=== PATIENT | male | born 1985 | race African-American/Black ===

== ENCOUNTER 2018-10-29 19:33 | Inpatient (IN) | payer SELFPAY ==
[~2018-10-29] VITALS: Ht 175.3 cm; Wt 88.2 kg
[2018-10-29 20:31] LABS: BASO % 0 % (0-3); EOS % 0 % (0-3); HEMATOCRIT 45.3 % (39.0-53.0); HEMOGLOBIN 15.2 g/dL (13.0-17.5); LYMPH # 1.2 x10^3/uL (1.0-4.8); LYMPH % 15 % (24-48); MEAN CORPUSCULAR HEMOGLOBIN 33 pg (25-35); MEAN CORPUSCULAR HGB CONC 34 g/dL (31-37); MEAN CORPUSCULAR VOLUME 98 fL (79-100); MONO % 13 % (0-9); NEUT # 5.5 x10^3uL (1.8-7.7); NEUT % 71 % (31-73); PLATELET COUNT 178 x10^3/uL (140-400); RED BLOOD COUNT 4.64 x10^6/uL (4.30-5.70); RED CELL DISTRIBUTION WIDTH 15.3 % (11.5-14.5); WHITE BLOOD COUNT 7.8 x10^3/uL (4.0-11.0)
[2018-10-29 20:32] LABS: BILIRUBIN,URINE MODERATE (NEG); CLARITY,URINE TURBID; COLOR,URINE YELLOW; NITRITE,URINE NEGATIVE (NEG); PROTEIN,URINE NEGATIVE (NEG-TRACE)
[2018-10-29 20:39] LABS: BARBITURATES NEG (NEG); BENZODIAZEPINES POS (NEG); CANNABINOIDS NEG (NEG); COCAINE NEG (NEG); METHADONE NEG (NEG); OPIATES NEG (NEG); PHENCYCLIDINE NEG (NEG)
[2018-10-29 20:40] LABS: AMPHETAMINE/METHAMPHETAMINE NEG (NEG)
[2018-10-29 20:45] LABS: BACTERIA,URINE FEW /HPF (0-FEW); RBC,URINE 0 /HPF (0-2)
[2018-10-29] MEDS ORDERED: ASPIRIN 325 MG TABLET PO ONE (20:45)
[2018-10-29] MEDS ORDERED: MULTIVIT INFUSN,ADULT 4,VIT K 10 ML, THIAMINE INJ 100 MG, FOLIC ACID INJ 1 MG in IV NOR... IV ONE (20:45)
[2018-10-29 20:46] LABS: CALCIUM 9.5 mg/dL (8.5-10.1); CREATININE 1.2 mg/dL (0.7-1.3); GFR 68.9; POTASSIUM 3.3 mmol/L (3.5-5.1)
[2018-10-29 20:46] LABS: SQUAMOUS EPITHELIAL CELL,UR FEW /LPF
[2018-10-29 20:52] LABS: ALBUMIN 4.2 g/dL (3.4-5.0); ALBUMIN/GLOBULIN RATIO 1.1 (1.0-1.7); MAGNESIUM 1.9 mg/dL (1.8-2.4); TOTAL BILIRUBIN 0.7 mg/dL (0.2-1.0)
--- NOTE | 2018-10-29 22:13 | RAD ---
EXAM: CHEST 1 VIEW History: Chest pain COMPARISON: None available. TECHNIQUE: Single portable radiograph of the chest FINDINGS: The cardiac silhouette is unremarkable. The lungs are clear bilaterally. The costophrenic sulci are clear and well demarcated. IMPRESSION: No radiographic evidence of an acute cardiopulmonary process. Electronically signed by: Natanael Padilla MD (10/29/2018 10:10 PM) [facility]
[2018-10-29] MEDS ORDERED: IV NORMAL SALINE 1000ML BAG 1,000 ML IV ONE (23:30)
[2018-10-29] MEDS ORDERED: LABETALOL 20 MG/4 ML DISP.SYRIN. IVP ONE (23:30)
--- NOTE | 2018-10-29 23:54 | PHYS DOC ---
Past Medical History Past Medical History: Other Additional Past Medical Histor: DAILY ETOH AND OCCASIONAL DRUG USE Past Surgical History: Knee Replacement Additional Past Surgical Histo: R SHOULDER Alcohol Use: Heavy Additional Information: DRINKS REPORTED 6 X 20 OZ BEERS AND 1 PINT VODKA DAILY. Drug Use: Other Social History Narrative: ECSTASY Adult General Chief Complaint Chief Complaint: CHEST PAIN HPI HPI Patient is a 33 year old male with history of vocal abuse who presents to the ED to be evaluated for chest pain. Patient is very decisive or rather altered. He appears sleepy. He is not giving me much information. I am collecting most of the information from this step mother and the father who in the ED. They state patient is alcoholic. Drinks heavily. Patient himself states the last time he had alcohol was 2 days ago. He states he usually drinks 2 large pitchers of beer as well as one large size hard liquor daily except yesterday. Family states this patient just moved from [place]. They state in [place] he was seen at multiple facilities for alcohol intoxication several times. They states somehow he used to walk a lot in [place]. They state this patient has not had any sleep for 2 days. Review of Systems Review of Systems Constitutional: Denies fever or chills [] Eyes: Denies change in visual acuity, redness, or eye pain [] HENT: Denies nasal congestion or sore throat [] Respiratory: Denies cough or shortness of breath [] Cardiovascular: No additional information not addressed in HPI [] GI: Denies abdominal pain, nausea, vomiting, bloody stools or diarrhea [] : Denies dysuria or hematuria [] Musculoskeletal: Denies back pain or joint pain [] Integument: Denies rash or skin lesions [] Neurologic: Denies headache, focal weakness or sensory changes [] Endocrine: Denies polyuria or polydipsia [] All other systems were reviewed and found to be within normal limits, except as documented in this note. Current Medications Current Medications Current Medications Medications (Trade) Dose Ordered Sig/Verna Start Time Stop Time Status Last Admin Dose Admin Aspirin (Lui Aspirin) 325 mg 1X ONCE 10/29/18 20:45 10/29/18 20:46 DC 10/29/18 20:30 325 MG Multivitamins 10 ml/Thiamine HCl 100 mg/Folic Acid 1 mg/Sodium Chloride 1,011.2 ml @ 1,000.088 mls/hr 1X ONCE 10/29/18 20:45 10/29/18 21:45 DC 10/29/18 20:35 1,000.088 MLS/HR Allergies Allergies Allergies Coded Allergies Type Severity Reaction Last Updated Verified No Known Drug Allergies 10/29/18 No Physical Exam Physical Exam Constitutional: Well developed, well nourished, no acute distress, non-toxic appearance. [] HENT: Normocephalic, atraumatic, bilateral external ears normal, oropharynx moist, no oral exudates, nose normal. [] Eyes: PERRLA, EOMI, conjunctiva normal, no discharge. [] Neck: Normal range of motion, no tenderness, supple, no stridor. [] Cardiovascular:Heart rate regular rhythm, no murmur [] Lungs & Thorax: Bilateral breath sounds clear to auscultation [] Abdomen: Bowel sounds normal, soft, no tenderness, no masses, no pulsatile masses. [] Skin: Multiple bruises consistent with cuts on bilateral lower extremities Back: No tenderness, no CVA tenderness. [] Extremities: No tenderness, no cyanosis, no clubbing, ROM intact, no edema. [] Neurologic: Alert and oriented X 3, normal motor function, normal sensory function, no focal deficits noted. Cranial nerves II through XII intact Psychologic: Flat affect. Asleep most of the time. Current Patient Data Vital Signs Vital Signs Date Time Temp Pulse Resp B/P (MAP) Pulse Ox O2 Delivery O2 Flow Rate FiO2 10/29/18 22:55 76 20 138/86 (103) 99 Room Air 10/29/18 19:36 98.0 98.0 Lab Values Laboratory Tests Test 10/29/18 19:45 10/29/18 20:20 White Blood Count 7.8 x10^3/uL (4.0-11.0) Red Blood Count 4.64 x10^6/uL (4.30-5.70) Hemoglobin 15.2 g/dL (13.0-17.5) Hematocrit 45.3 % (39.0-53.0) Mean Corpuscular Volume 98 fL (79-100) Mean Corpuscular Hemoglobin 33 pg (25-35) Mean Corpuscular Hemoglobin Concent 34 g/dL (31-37) Red Cell Distribution Width 15.3 % (11.5-14.5) H Platelet Count 178 x10^3/uL (140-400) Neutrophils (%) (Auto) 71 % (31-73) Lymphocytes (%) (Auto) 15 % (24-48) L Monocytes (%) (Auto) 13 % (0-9) H Eosinophils (%) (Auto) 0 % (0-3) Basophils (%) (Auto) 0 % (0-3) Neutrophils # (Auto) 5.5 x10^3uL (1.8-7.7) Lymphocytes # (Auto) 1.2 x10^3/uL (1.0-4.8) Monocytes # (Auto) 1.0 x10^3/uL (0.0-1.1) Eosinophils # (Auto) 0.0 x10^3/uL (0.0-0.7) Basophils # (Auto) 0.0 x10^3/uL (0.0-0.2) Sodium Level 140 mmol/L (136-145) Potassium Level 3.3 mmol/L (3.5-5.1) L Chloride Level 100 mmol/L (98-107) Carbon Dioxide Level 23 mmol/L (21-32) Anion Gap 17 (6-14) H Blood Urea Nitrogen 10 mg/dL (8-26) Creatinine 1.2 mg/dL (0.7-1.3) Estimated GFR (Cockcroft-Gault) 68.9 BUN/Creatinine Ratio 8 (6-20) Glucose Level 101 mg/dL (70-99) H Calcium Level 9.5 mg/dL (8.5-10.1) Magnesium Level 1.9 mg/dL (1.8-2.4) Total Bilirubin 0.7 mg/dL (0.2-1.0) Aspartate Amino Transferase (AST) 103 U/L (15-37) H Alanine Aminotransferase (ALT) 52 U/L (16-63) Alkaline Phosphatase 75 U/L (46-116) Troponin I Quantitative 0.022 ng/mL (0.000-0.055) NA-Zyh-D-Type Natriuretic Peptide 44 pg/mL (0-124) Total Protein 8.0 g/dL (6.4-8.2) Albumin 4.2 g/dL (3.4-5.0) Albumin/Globulin Ratio 1.1 (1.0-1.7) Lipase 64 U/L (73-393) L Thyroid Stimulating Hormone (TSH) 0.646 uIU/mL (0.358-3.74) Ethyl Alcohol Level < 10 mg/dL (0-10) Urine Collection Type Void Urine Color Yellow Urine Clarity Turbid Urine pH 6.0 Urine Specific [place] >=1.030 Urine Protein Negative mg/dL (NEG-TRACE) Urine Glucose (UA) Negative mg/dL (NEG) Urine Ketones (Stick) 15 mg/dL (NEG) Urine Blood Trace (NEG) Urine Nitrite Negative (NEG) Urine Bilirubin Moderate (NEG) Urine Urobilinogen Dipstick 1.0 mg/dL (0.2 mg/dL) Urine Leukocyte Esterase Negative (NEG) Urine RBC 0 /HPF (0-2) Urine WBC 1-4 /HPF (0-4) Urine Squamous Epithelial Cells Few /LPF Urine Bacteria Few /HPF (0-FEW) Urine Mucus Mod /LPF Urine Opiates Screen Neg (NEG) Urine Methadone Screen Neg (NEG) Urine Barbiturates Neg (NEG) Urine Phencyclidine Screen Neg (NEG) Urine Amphetamine/Methamphetamine Neg (NEG) Urine Benzodiazepines Screen Pos (NEG) Urine Cocaine Screen Neg (NEG) Urine Cannabinoids Screen Neg (NEG) Urine Ethyl Alcohol Neg (NEG) Laboratory Tests 10/29/18 19:45 Laboratory Tests 10/29/18 19:45 EKG EKG [] Radiology/Procedures Radiology/Procedures [] Course & Med Decision Making Course & Med Decision Making Pertinent Labs and Imaging studies reviewed. (See chart for details) This is a 33-year-old male patient presenting to the ED today with family, family is giving most of the history. They state patient is an alcoholic. They state patient was complaining of chest pain. Patient himself appears sleepy most of the time sometimes he is choosing to be altered or refusing to answer questions it is hard to tell. Family states he just moved here from [place] and they do not have a baseline other than he is alcoholic. Patient's labs including cardiac workup was negative for any acute findings. We ordered a CT of the head. Patient woke up several times, anytime he was told he is going to CT he refused stating he does not want the CT. He states he just had a CT done in [place] a couple days ago that was negative. He states he has had multiple CTs done in [place] which are negative. Patient has been given a banana bag, given IV fluids. He is more awake as the evening went by. His drug screen was noted for benzodiazepines only. He states he uses ecstasy but has not used it for [address] Espinoza who accepted patient for admission Routine consult placed for cardiology Melissa Disclaimer Dragon Disclaimer This electronic medical record was generated, in whole or in part, using a voice recognition dictation system. 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
[2018-10-30] VITALS (7 sets, daily range): BP systolic 100–155; BP diastolic 67–91
[2018-10-30] MEDS ORDERED: MORPHINE SULFATE 2 MG/ML VIAL. IV PRN
[2018-10-30] MEDS ORDERED: ONDANSETRON PF 4 MG/2 ML VIAL. IV PRN
[2018-10-30] MEDS ORDERED: cloNIDine HCL 0.1 MG TABLET PO PRN
[2018-10-30] MEDS ORDERED: ACETAMINOPHEN 325 MG TABLET. PO PRN
--- NOTE | 2018-10-30 00:10 | NUR ---
ADMISSION NOTE: Patient arrived to room 556 via wheelchair accompanied by ED staff. Patient able to ambulate to bed without visible difficulty. Bed low, locked, call light within reach. Patient complains of hunger at this time. Will check EMR for orders regarding diet. Patient has no other complaints at this time. Will continue to monitor.
[2018-10-30] MEDS ORDERED: POTASSIUM CHLORIDE 20 MEQ TABLET.ER. PO ONE (00:30)
[2018-10-30] MEDS: LORazepam 1 MG TABLET PO PRN ×2 (02:55→04:42)
[2018-10-30 03:41] LABS: ALBUMIN 3.9 g/dL (3.4-5.0); ALBUMIN/GLOBULIN RATIO 1.2 (1.0-1.7); CALCIUM 8.8 mg/dL (8.5-10.1); GFR 102.9; POTASSIUM 3.6 mmol/L (3.5-5.1); TOTAL BILIRUBIN 0.8 mg/dL (0.2-1.0); TOTAL PROTEIN 7.1 g/dL (6.4-8.2)
[2018-10-30 03:53] LABS: BASO % 1 % (0-3); EOS % 0 % (0-3); HEMATOCRIT 44.1 % (39.0-53.0); HEMOGLOBIN 14.6 g/dL (13.0-17.5); LYMPH # 1.5 x10^3/uL (1.0-4.8); LYMPH % 21 % (24-48); MEAN CORPUSCULAR HEMOGLOBIN 32 pg (25-35); MEAN CORPUSCULAR HGB CONC 33 g/dL (31-37); MEAN CORPUSCULAR VOLUME 98 fL (79-100); MONO # 0.9 x10^3/uL (0.0-1.1); MONO % 12 % (0-9); NEUT # 4.8 x10^3uL (1.8-7.7); NEUT % 66 % (31-73); PLATELET COUNT 180 x10^3/uL (140-400); RED BLOOD COUNT 4.52 x10^6/uL (4.30-5.70); RED CELL DISTRIBUTION WIDTH 15.4 % (11.5-14.5); WHITE BLOOD COUNT 7.3 x10^3/uL (4.0-11.0)
--- NOTE | 2018-10-30 04:30 | NUR ---
Entered patient room d/t patient calling dish up person light but not saying anything when answered. Patient was observed with hand over his eyes and other hand pointing to empty recliner, shaking. Asked patient what was wrong, patient did not respond. Patient was then observed to place an index finger over his mouth in a shushing motion and then continued to point at empty recliner. Asked patient if someone was in his room, patient nodded head. Reassured patient that I was the only person in his room at the time. Patient continued to keep hand over his eyes. Asked patient if his hallucinations were getting worse, patient shook head "yes." Asked patient if he would like me to go get his Ativan for the hallucinations, patient again nodded head "yes." Will continue to monitor after administered dose.
[2018-10-30] MEDS ORDERED: DIPH25TA64 PO (04:50)
--- NOTE | 2018-10-30 06:49 | EKG ---
[facility] [address] [place] [address] Test Date: 2018-10-29 Test Time: 19:39:58 Pat Name: SUHAIL NICHOLSON Department: Room: 556 1 Gender: M Senior Investigator: : 1985 Requested By: MARCIAL FINN Order Number: [id number] Reading MD: Joel Ordoñez MD Measurements Intervals Novice Rate: 94 P: 90 LA: 132 QRS: 24 QRSD: 90 T: 20 QT: 352 QTc: 445 Interpretive Statements SR NON-SPECIFIC ST/T CHANGES Electronically Signed On 10-30-2018 16:24:01 CDT by Joel Ordoñez MD
--- NOTE | 2018-10-30 08:11 | NUR ---
Pt was sleeping when 0721 CIWA was due. Can not verify orientation.
--- NOTE | 2018-10-30 09:29 | PDOC2 ---
FADI MCPHERSON ADMINISTRATIVE COORDINATOR 10/30/18 0929: CARDIAC CONSULT DATE OF CONSULT Date of Consult DATE: 10/30/18 TIME: 09:13 REASON FOR CONSULT Reason for Consult: Chest pain REFERRING PHYSICIAN Referring Physician: Dennis SOURCE Source: Chart review, Patient HISTORY OF PRESENT ILLNESS HISTORY OF PRESENT ILLNESS This is a 33 yo male admitted for complains chest pain. Upon admission he has been noted with ETOH use and +for benzodiazepine. I could not get much information from him as he is very drowsy as he was given large dose of ativan per protocol. He is able to follow instructions despite being very drowsy. Pt has been noted as a heavy ETOH user with combination of beer and vodka. At the present time I palpated his chest gently and this appeared to trigger the chest discomfort. PAST MEDICAL HISTORY Past Medical History alcoholism PAST SURGICAL HISTORY Past Surgical History: Arthroscopy (right shoulder and knee surgery) FAMILY HISTORY Family History: Family History Unknown SOCIAL HISTORY ALCOHOL: heavy (at least 6 bottles of beer and 1 pint of vodka) Drugs: Ecstasy CURRENT MEDICATIONS CURRENT MEDICATIONS Current Medications Medications (Trade) Dose Ordered Sig/Verna Route PRN Reason Start Time Stop Time Status Last Admin Dose Admin Aspirin (Lui Aspirin) 325 mg 1X ONCE PO 10/29/18 20:45 10/29/18 20:46 DC 10/29/18 20:30 Multivitamins 10 ml/Thiamine HCl 100 mg/Folic Acid 1 mg/Sodium Chloride 1,011.2 ml @ 1,000.088 mls/hr 1X ONCE IV 10/29/18 20:45 10/29/18 21:45 DC 10/29/18 20:35 Sodium Chloride 1,000 ml @ 1,000 mls/hr 1X ONCE IV 10/29/18 23:30 10/30/18 00:29 DC 10/30/18 00:44 Lorazepam (Ativan) 4 mg PRN Q1HR PRN PO For CIWA 8-14 10/30/18 00:00 10/30/18 04:42 Potassium Chloride (Klor-Con) 40 meq 1X ONCE PO 10/30/18 00:30 10/30/18 00:31 DC 10/30/18 00:44 ALLERGIES ALLERGIES: Coded Allergies: No Known Drug Allergies (Unverified , 10/29/18) ROS Review of System unreliable, sedated PHYSICAL EXAM General: Cooperative, No acute distress HEENT: Atraumatic, Mucous membr. moist/pink Lungs: Clear to auscultation, Normal air movement Heart: Regular rate (SR per EKG. Regular 60s), Normal S1, Normal S2, No murmurs Abdomen: Soft, No tenderness Extremities: No cyanosis, No edema Skin: No breakdown, No significant lesion Neuro: Sensation intact Psych/Mental Status: Other (sedated) MUSCULOSKELETAL: Full range of motion without pain VITALS VITALS Vital Signs Date Time Temp Pulse Resp B/P (MAP) Pulse Ox O2 Delivery O2 Flow Rate FiO2 10/30/18 07:00 97.9 60 20 100/67 (78) 95 Room Air 97.9 LABS Lab: Laboratory Tests Test 10/29/18 19:45 10/29/18 20:20 10/30/18 03:00 White Blood Count 7.8 x10^3/uL (4.0-11.0) 7.3 x10^3/uL (4.0-11.0) Red Blood Count 4.64 x10^6/uL (4.30-5.70) 4.52 x10^6/uL (4.30-5.70) Hemoglobin 15.2 g/dL (13.0-17.5) 14.6 g/dL (13.0-17.5) Hematocrit 45.3 % (39.0-53.0) 44.1 % (39.0-53.0) Mean Corpuscular Volume 98 fL (79-100) 98 fL (79-100) Mean Corpuscular Hemoglobin 33 pg (25-35) 32 pg (25-35) Mean Corpuscular Hemoglobin Concent 34 g/dL (31-37) 33 g/dL (31-37) Red Cell Distribution Width 15.3 % (11.5-14.5) 15.4 % (11.5-14.5) Platelet Count 178 x10^3/uL (140-400) 180 x10^3/uL (140-400) Neutrophils (%) (Auto) 71 % (31-73) 66 % (31-73) Lymphocytes (%) (Auto) 15 % (24-48) 21 % (24-48) Monocytes (%) (Auto) 13 % (0-9) 12 % (0-9) Eosinophils (%) (Auto) 0 % (0-3) 0 % (0-3) Basophils (%) (Auto) 0 % (0-3) 1 % (0-3) Neutrophils # (Auto) 5.5 x10^3uL (1.8-7.7) 4.8 x10^3uL (1.8-7.7) Lymphocytes # (Auto) 1.2 x10^3/uL (1.0-4.8) 1.5 x10^3/uL (1.0-4.8) Monocytes # (Auto) 1.0 x10^3/uL (0.0-1.1) 0.9 x10^3/uL (0.0-1.1) Eosinophils # (Auto) 0.0 x10^3/uL (0.0-0.7) 0.0 x10^3/uL (0.0-0.7) Basophils # (Auto) 0.0 x10^3/uL (0.0-0.2) 0.0 x10^3/uL (0.0-0.2) Sodium Level 140 mmol/L (136-145) 141 mmol/L (136-145) Potassium Level 3.3 mmol/L (3.5-5.1) 3.6 mmol/L (3.5-5.1) Chloride Level 100 mmol/L (98-107) 103 mmol/L (98-107) Carbon Dioxide Level 23 mmol/L (21-32) 22 mmol/L (21-32) Anion Gap 17 (6-14) 16 (6-14) Blood Urea Nitrogen 10 mg/dL (8-26) 8 mg/dL (8-26) Creatinine 1.2 mg/dL (0.7-1.3) 1.0 mg/dL (0.7-1.3) Estimated GFR (Cockcroft-Gault) 68.9 102.9 BUN/Creatinine Ratio 8 (6-20) 8 (6-20) Glucose Level 101 mg/dL (70-99) 128 mg/dL (70-99) Calcium Level 9.5 mg/dL (8.5-10.1) 8.8 mg/dL (8.5-10.1) Magnesium Level 1.9 mg/dL (1.8-2.4) Total Bilirubin 0.7 mg/dL (0.2-1.0) 0.8 mg/dL (0.2-1.0) Aspartate Amino Transf (AST/SGOT) 103 U/L (15-37) 86 U/L (15-37) Alanine Aminotransferase (ALT/SGPT) 52 U/L (16-63) 47 U/L (16-63) Alkaline Phosphatase 75 U/L (46-116) 72 U/L (46-116) Troponin I Quantitative 0.022 ng/mL (0.000-0.055) 0.030 ng/mL (0.000-0.055) FB-Uhi-W-Type Natriuretic Peptide 44 pg/mL (0-124) Total Protein 8.0 g/dL (6.4-8.2) 7.1 g/dL (6.4-8.2) Albumin 4.2 g/dL (3.4-5.0) 3.9 g/dL (3.4-5.0) Albumin/Globulin Ratio 1.1 (1.0-1.7) 1.2 (1.0-1.7) Lipase 64 U/L (73-393) Thyroid Stimulating Hormone (TSH) 0.646 uIU/mL (0.358-3.74) Ethyl Alcohol Level < 10 mg/dL (0-10) Urine Collection Type Void Urine Color Yellow Urine Clarity Turbid Urine pH 6.0 Urine Specific [place] >=1.030 Urine Protein Negative mg/dL (NEG-TRACE) Urine Glucose (UA) Negative mg/dL (NEG) Urine Ketones (Stick) 15 mg/dL (NEG) Urine Blood Trace (NEG) Urine Nitrite Negative (NEG) Urine Bilirubin Moderate (NEG) Urine Urobilinogen Dipstick 1.0 mg/dL (0.2 mg/dL) Urine Leukocyte Esterase Negative (NEG) Urine RBC 0 /HPF (0-2) Urine WBC 1-4 /HPF (0-4) Urine Squamous Epithelial Cells Few /LPF Urine Bacteria Few /HPF (0-FEW) Urine Mucus Mod /LPF Urine Opiates Screen Neg (NEG) Urine Methadone Screen Neg (NEG) Urine Barbiturates Neg (NEG) Urine Phencyclidine Screen Neg (NEG) Urine Amphetamine/Methamphetamine Neg (NEG) Urine Benzodiazepines Screen Pos (NEG) Urine Cocaine Screen Neg (NEG) Urine Cannabinoids Screen Neg (NEG) Urine Ethyl Alcohol Neg (NEG) Ammonia 17 mcmol/L (11-34) ASSESSMENT/PLAN ASSESSMENT/PLAN Atypical CP: possibly MSK. EKG SR without acute changes Heavy alcoholism: presently sedated with ativan. Recommendations 1. CIWA protocol per PCP 2. Repeat trop. lipids. No further cardiac workup. ERICKA BEGUM MD 10/30/18 1624: CARDIAC CONSULT ASSESSMENT/PLAN ASSESSMENT/PLAN Pt. seen and examined. Agree with above DIABETES CLINICAL MANAGER note. EKG, cardiac exam, history not consistent with cardiac issues. Supportive care. pls call with questions. FADI MCPHERSON APRN Oct 30, 2018 09:29 ERICKA BEGUM MD Oct 30, 2018 16:24
[2018-10-30] MEDS: MULTIVIT INFUSN,ADULT 4,VIT K 10 ML, THIAMINE INJ 100 MG, FOLIC ACID INJ 1 MG in IV NOR... IV SCH (09:41)
[2018-10-30] MEDS ORDERED: PANTOPRAZOLE 40 MG TABLET.DR. PO ONE (09:45)
[2018-10-30 09:47] LABS: CHOLESTEROL/HDL RATIO 2.4
--- NOTE | 2018-10-30 10:23 | NUR ---
SW following. Discussed with RN, pt is on day 3 of alcohol withdrawals, with some hallucinations yesterday. Per RN, pt is from [place], here visiting his parents. SW consulted PAT team, they will assess pt this afternoon. RN notified. Pt is listed as self pay, SW to give self pay resources when pt is more alert. SW will continue to follow for any discharge planning needs.
--- NOTE | 2018-10-30 10:44 | PDOC1 ---
History and Physical Date of Admission Date of Admission DATE: 10/30/18 TIME: 10:40 Identification/Chief Complaint Chief Complaint intox Source Source: Chart review History of Present Illness History of Present Illness MR. Kiran is a 33 year old male admit with confusion and agitation and delirium He has a history of substance abuse of alcohol, in the ER last night complained of chest pain. altered in the ER, very lethagic this AM ER report more reliable about EtOH intake, he is not that clear with me, only giving one word answr and confued, and not oriented very sleepy. Family states this patient just moved from [place], had prior admits for acute alcohol intoxication several times. T Past Medical History Cardiovascular: No pertinent hx Pulmonary: No pertinent hx Past Surgical History Past Surgical History: Arthroscopy (right shoulder and knee surgery) Family History Family History: Family History Unknown Social History ALCOHOL: heavy (at least 6 bottles of beer and 1 pint of vodka) Drugs: Ecstasy Current Problem List Problem List Problems Medical Problems: (1) Chest pain Status: Acute Current Medications Current Medications Current Medications Aspirin (Lui Aspirin) 325 mg 1X ONCE PO Last administered on 10/29/18at 20:30 ; Start 10/29/18 at 20:45; Stop 10/29/18 at 20:46; Status DC Multivitamins 10 ml/Thiamine HCl 100 mg/Folic Acid 1 mg/Sodium Chloride 1,011.2 ml @ 1,000.088 mls/hr 1X ONCE IV Last administered on 10/29/18at 20:35; Start 10/29/18 at 20:45; Stop 10/29/18 at 21:45; Status DC Labetalol HCl (Normodyne Iv Push) 10 mg 1X ONCE IVP ; Start 10/29/18 at 23:30; Stop 10/29/18 at 23:31; Status DC Sodium Chloride 1,000 ml @ 1,000 mls/hr 1X ONCE IV Last administered on at 00:44; Start 10/29/18 at 23:30; Stop 10/30/18 at 00:29; Status DC Ondansetron HCl (Zofran) 4 mg PRN Q8HRS PRN IV NAUSEA/VOMITING 1ST CHOICE; Start 10/30/18 at 00:00; Stop 10/30/18 at 23:59 Morphine Sulfate (Morphine Sulfate) 2 mg PRN Q2HR PRN IV SEVERE PAIN; Start at 00:00; Stop 10/30/18 at 23:59 Acetaminophen (Tylenol) 650 mg PRN Q4HRS PRN PO FEVER; Start 10/30/18 at 00:00 ; Stop 10/30/18 at 23:59 Multivitamins 10 ml/Thiamine HCl 100 mg/Folic Acid 1 mg/Sodium Chloride 1,011.2 ml @ 100 mls/ hr DAILY IV Last administered on 10/30/18at 09:41; Start at 09:00; Stop 11/03/18 at 19:07 Lorazepam (Ativan) 4 mg PRN Q1HR PRN PO For CIWA 8-14 Last administered on 10/30at 04:42; Start 10/30/18 at 00:00 Clonidine HCl (Catapres) 0.1 mg PRN Q1HR PRN PO SBP > 180 or DBP > 100, MRX3; Start 10/30/18 at 00:00 Potassium Chloride (Klor-Con) 40 meq 1X ONCE PO Last administered on at 00:44; Start 10/30/18 at 00:30; Stop 10/30/18 at 00:31; Status DC Pantoprazole Sodium (Protonix) 40 mg DAILYAC PO ; Start 10/31/18 at 07:30 Pantoprazole Sodium (Protonix) 40 mg 1X ONCE PO ; Start 10/30/18 at 09:45; Stop 10/30/18 at 09:46; Status DC Active Scripts Active Reported Benadryl Allergy (Diphenhydramine Hcl) 25 Mg Tablet 25 Mg PO PRN QHS PRN Allergies Allergies: Coded Allergies: No Known Drug Allergies (Unverified , 10/29/18) ROS Review of System unable, confused, lethargic Physical Exam General: mild distress, Other (somnolent) HEENT: Atraumatic, EOMI Lungs: Clear to auscultation, Normal air movement Heart: RRR, no murmurs Abdomen: Normal bowel sounds, Soft Rectal Exam: not examined Extremities: No cyanosis, No edema, Normal pulses Skin: No rashes, No significant lesion Neuro: Normal tone Psych/Mental Status: Other (somnolent) Vitals Vitals Vital Signs Date Time Temp Pulse Resp B/P (MAP) Pulse Ox O2 Delivery O2 Flow Rate FiO2 10/30/18 07:00 97.9 60 20 100/67 (78) 95 Room Air 97.9 Labs Labs Laboratory Tests Test 10/29/18 19:45 10/29/18 20:20 10/30/18 03:00 10/30/18 09:45 White Blood Count 7.8 x10^3/uL (4.0-11.0) 7.3 x10^3/uL (4.0-11.0) Red Blood Count 4.64 x10^6/uL (4.30-5.70) 4.52 x10^6/uL (4.30-5.70) Hemoglobin 15.2 g/dL (13.0-17.5) 14.6 g/dL (13.0-17.5) Hematocrit 45.3 % (39.0-53.0) 44.1 % (39.0-53.0) Mean Corpuscular Volume 98 fL (79-100) 98 fL (79-100) Mean Corpuscular Hemoglobin 33 pg (25-35) 32 pg (25-35) Mean Corpuscular Hemoglobin Concent 34 g/dL (31-37) 33 g/dL (31-37) Red Cell Distribution Width 15.3 % (11.5-14.5) 15.4 % (11.5-14.5) Platelet Count 178 x10^3/uL (140-400) 180 x10^3/uL (140-400) Neutrophils (%) (Auto) 71 % (31-73) 66 % (31-73) Lymphocytes (%) (Auto) 15 % (24-48) 21 % (24-48) Monocytes (%) (Auto) 13 % (0-9) 12 % (0-9) Eosinophils (%) (Auto) 0 % (0-3) 0 % (0-3) Basophils (%) (Auto) 0 % (0-3) 1 % (0-3) Neutrophils # (Auto) 5.5 x10^3uL (1.8-7.7) 4.8 x10^3uL (1.8-7.7) Lymphocytes # (Auto) 1.2 x10^3/uL (1.0-4.8) 1.5 x10^3/uL (1.0-4.8) Monocytes # (Auto) 1.0 x10^3/uL (0.0-1.1) 0.9 x10^3/uL (0.0-1.1) Eosinophils # (Auto) 0.0 x10^3/uL (0.0-0.7) 0.0 x10^3/uL (0.0-0.7) Basophils # (Auto) 0.0 x10^3/uL (0.0-0.2) 0.0 x10^3/uL (0.0-0.2) Sodium Level 140 mmol/L (136-145) 141 mmol/L (136-145) Potassium Level 3.3 mmol/L (3.5-5.1) 3.6 mmol/L (3.5-5.1) Chloride Level 100 mmol/L (98-107) 103 mmol/L (98-107) Carbon Dioxide Level 23 mmol/L (21-32) 22 mmol/L (21-32) Anion Gap 17 (6-14) 16 (6-14) Blood Urea Nitrogen 10 mg/dL (8-26) 8 mg/dL (8-26) Creatinine 1.2 mg/dL (0.7-1.3) 1.0 mg/dL (0.7-1.3) Estimated GFR (Cockcroft-Gault) 68.9 102.9 BUN/Creatinine Ratio 8 (6-20) 8 (6-20) Glucose Level 101 mg/dL (70-99) 128 mg/dL (70-99) Calcium Level 9.5 mg/dL (8.5-10.1) 8.8 mg/dL (8.5-10.1) Magnesium Level 1.9 mg/dL (1.8-2.4) Total Bilirubin 0.7 mg/dL (0.2-1.0) 0.8 mg/dL (0.2-1.0) Aspartate Amino Transf (AST/SGOT) 103 U/L (15-37) 86 U/L (15-37) Alanine Aminotransferase (ALT/SGPT) 52 U/L (16-63) 47 U/L (16-63) Alkaline Phosphatase 75 U/L (46-116) 72 U/L (46-116) Troponin I Quantitative 0.022 ng/mL (0.000-0.055) 0.030 ng/mL (0.000-0.055) 0.031 ng/mL (0.000-0.055) QG-Noj-M-Type Natriuretic Peptide 44 pg/mL (0-124) Total Protein 8.0 g/dL (6.4-8.2) 7.1 g/dL (6.4-8.2) Albumin 4.2 g/dL (3.4-5.0) 3.9 g/dL (3.4-5.0) Albumin/Globulin Ratio 1.1 (1.0-1.7) 1.2 (1.0-1.7) Lipase 64 U/L (73-393) Thyroid Stimulating Hormone (TSH) 0.646 uIU/mL (0.358-3.74) Ethyl Alcohol Level < 10 mg/dL (0-10) Urine Collection Type Void Urine Color Yellow Urine Clarity Turbid Urine pH 6.0 Urine Specific [place] >=1.030 Urine Protein Negative mg/dL (NEG-TRACE) Urine Glucose (UA) Negative mg/dL (NEG) Urine Ketones (Stick) 15 mg/dL (NEG) Urine Blood Trace (NEG) Urine Nitrite Negative (NEG) Urine Bilirubin Moderate (NEG) Urine Urobilinogen Dipstick 1.0 mg/dL (0.2 mg/dL) Urine Leukocyte Esterase Negative (NEG) Urine RBC 0 /HPF (0-2) Urine WBC 1-4 /HPF (0-4) Urine Squamous Epithelial Cells Few /LPF Urine Bacteria Few /HPF (0-FEW) Urine Mucus Mod /LPF Urine Opiates Screen Neg (NEG) Urine Methadone Screen Neg (NEG) Urine Barbiturates Neg (NEG) Urine Phencyclidine Screen Neg (NEG) Urine Amphetamine/Methamphetamine Neg (NEG) Urine Benzodiazepines Screen Pos (NEG) Urine Cocaine Screen Neg (NEG) Urine Cannabinoids Screen Neg (NEG) Urine Ethyl Alcohol Neg (NEG) Ammonia 17 mcmol/L (11-34) Triglycerides Level 57 mg/dL (0-150) Cholesterol Level 154 mg/dL (0-200) LDL Cholesterol, Calculated 79 mg/dL (0-100) VLDL Cholesterol, Calculated 11 mg/dL (0-40) Non-HDL Cholesterol Calculated 90 mg/dL (0-129) HDL Cholesterol 64 mg/dL (40-60) Cholesterol/HDL Ratio 2.4 Laboratory Tests Test 10/29/18 19:45 10/29/18 20:20 10/30/18 03:00 10/30/18 09:45 White Blood Count 7.8 x10^3/uL (4.0-11.0) 7.3 x10^3/uL (4.0-11.0) Red Blood Count 4.64 x10^6/uL (4.30-5.70) 4.52 x10^6/uL (4.30-5.70) Hemoglobin 15.2 g/dL (13.0-17.5) 14.6 g/dL (13.0-17.5) Hematocrit 45.3 % (39.0-53.0) 44.1 % (39.0-53.0) Mean Corpuscular Volume 98 fL (79-100) 98 fL (79-100) Mean Corpuscular Hemoglobin 33 pg (25-35) 32 pg (25-35) Mean Corpuscular Hemoglobin Concent 34 g/dL (31-37) 33 g/dL (31-37) Red Cell Distribution Width 15.3 % (11.5-14.5) 15.4 % (11.5-14.5) Platelet Count 178 x10^3/uL (140-400) 180 x10^3/uL (140-400) Neutrophils (%) (Auto) 71 % (31-73) 66 % (31-73) Lymphocytes (%) (Auto) 15 % (24-48) 21 % (24-48) Monocytes (%) (Auto) 13 % (0-9) 12 % (0-9) Eosinophils (%) (Auto) 0 % (0-3) 0 % (0-3) Basophils (%) (Auto) 0 % (0-3) 1 % (0-3) Neutrophils # (Auto) 5.5 x10^3uL (1.8-7.7) 4.8 x10^3uL (1.8-7.7) Lymphocytes # (Auto) 1.2 x10^3/uL (1.0-4.8) 1.5 x10^3/uL (1.0-4.8) Monocytes # (Auto) 1.0 x10^3/uL (0.0-1.1) 0.9 x10^3/uL (0.0-1.1) Eosinophils # (Auto) 0.0 x10^3/uL (0.0-0.7) 0.0 x10^3/uL (0.0-0.7) Basophils # (Auto) 0.0 x10^3/uL (0.0-0.2) 0.0 x10^3/uL (0.0-0.2) Sodium Level 140 mmol/L (136-145) 141 mmol/L (136-145) Potassium Level 3.3 mmol/L (3.5-5.1) 3.6 mmol/L (3.5-5.1) Chloride Level 100 mmol/L (98-107) 103 mmol/L (98-107) Carbon Dioxide Level 23 mmol/L (21-32) 22 mmol/L (21-32) Anion Gap 17 (6-14) 16 (6-14) Blood Urea Nitrogen 10 mg/dL (8-26) 8 mg/dL (8-26) Creatinine 1.2 mg/dL (0.7-1.3) 1.0 mg/dL (0.7-1.3) Estimated GFR (Cockcroft-Gault) 68.9 102.9 BUN/Creatinine Ratio 8 (6-20) 8 (6-20) Glucose Level 101 mg/dL (70-99) 128 mg/dL (70-99) Calcium Level 9.5 mg/dL (8.5-10.1) 8.8 mg/dL (8.5-10.1) Magnesium Level 1.9 mg/dL (1.8-2.4) Total Bilirubin 0.7 mg/dL (0.2-1.0) 0.8 mg/dL (0.2-1.0) Aspartate Amino Transf (AST/SGOT) 103 U/L (15-37) 86 U/L (15-37) Alanine Aminotransferase (ALT/SGPT) 52 U/L (16-63) 47 U/L (16-63) Alkaline Phosphatase 75 U/L (46-116) 72 U/L (46-116) Troponin I Quantitative 0.022 ng/mL (0.000-0.055) 0.030 ng/mL (0.000-0.055) 0.031 ng/mL (0.000-0.055) PJ-Acj-L-Type Natriuretic Peptide 44 pg/mL (0-124) Total Protein 8.0 g/dL (6.4-8.2) 7.1 g/dL (6.4-8.2) Albumin 4.2 g/dL (3.4-5.0) 3.9 g/dL (3.4-5.0) Albumin/Globulin Ratio 1.1 (1.0-1.7) 1.2 (1.0-1.7) Lipase 64 U/L (73-393) Thyroid Stimulating Hormone (TSH) 0.646 uIU/mL (0.358-3.74) Ethyl Alcohol Level < 10 mg/dL (0-10) Urine Collection Type Void Urine Color Yellow Urine Clarity Turbid Urine pH 6.0 Urine Specific [place] >=1.030 Urine Protein Negative mg/dL (NEG-TRACE) Urine Glucose (UA) Negative mg/dL (NEG) Urine Ketones (Stick) 15 mg/dL (NEG) Urine Blood Trace (NEG) Urine Nitrite Negative (NEG) Urine Bilirubin Moderate (NEG) Urine Urobilinogen Dipstick 1.0 mg/dL (0.2 mg/dL) Urine Leukocyte Esterase Negative (NEG) Urine RBC 0 /HPF (0-2) Urine WBC 1-4 /HPF (0-4) Urine Squamous Epithelial Cells Few /LPF Urine Bacteria Few /HPF (0-FEW) Urine Mucus Mod /LPF Urine Opiates Screen Neg (NEG) Urine Methadone Screen Neg (NEG) Urine Barbiturates Neg (NEG) Urine Phencyclidine Screen Neg (NEG) Urine Amphetamine/Methamphetamine Neg (NEG) Urine Benzodiazepines Screen Pos (NEG) Urine Cocaine Screen Neg (NEG) Urine Cannabinoids Screen Neg (NEG) Urine Ethyl Alcohol Neg (NEG) Ammonia 17 mcmol/L (11-34) Triglycerides Level 57 mg/dL (0-150) Cholesterol Level 154 mg/dL (0-200) LDL Cholesterol, Calculated 79 mg/dL (0-100) VLDL Cholesterol, Calculated 11 mg/dL (0-40) Non-HDL Cholesterol Calculated 90 mg/dL (0-129) HDL Cholesterol 64 mg/dL (40-60) Cholesterol/HDL Ratio 2.4 VTE Prophylaxis Ordered VTE Prophylaxis Devices: No VTE Pharmacological Prophylaxi: Yes Assessment/Plan Assessment/Plan acute toxic encephalopathy, he reports EtOH abuse and ETOH level zero, CIWA protocol, acute alcohol delirium vitamins He is very lethargic after IV ativan, lethargic, Hx Ectasy use reported, he appears like a K2 patient now admit, needs monitoring JON MCQUEEN MD Oct 30, 2018 10:44
[2018-10-30] MEDS: ENOXAPARIN 40 MG/0.4 ML SYRINGE. SQ SCH ×2 (11:00→13:04)
--- NOTE | 2018-10-30 13:08 | NUR ---
Pt refused Lovonox at 1300, he was a/o x4 at the time of refusal. Pt was sleeping at time med was due.
--- NOTE | 2018-10-30 15:57 | NUR ---
SW following. PAT team contacted SW to advise of assessment. Pt denied taking any benzo's and denied having a drinking problem. He lives in [place] with his mom and is here visiting his Dad. PAT team gave pt information on RSI and [place] RADAC. Pt reported some situational depression and recently had a break up with his girlfriend. SW gave pt self pay resources packet. Pt denied any further SW needs.
[2018-10-31 03:00] VITALS: BP 120/72
[2018-10-31 07:00] VITALS: BP 140/85
[2018-10-31] MEDS: PANTOPRAZOLE 40 MG TABLET.DR. PO SCH ×2 (07:30→12:12)
[2018-10-31] MEDS: MULTIVIT INFUSN,ADULT 4,VIT K 10 ML, THIAMINE INJ 100 MG, FOLIC ACID INJ 1 MG in IV NOR... IV SCH (10:06)
--- NOTE | 2018-10-31 10:09 | NUR ---
Pt was sleeping at 0730 med pass, did not give protonix. aware.
[2018-10-31 10:40] VITALS: BP 106/70
--- NOTE | 2018-10-31 11:32 | PDOC ---
PROGRESS NOTES Chief Complaint Chief Complaint acute toxic encephalopathy, very lethargic after IV ativan, lethargic, I suspect K2 use History of Present Illness History of Present Illness try to DC if he can be more alert, he is arousable, but is sleeping Vitals Vitals Vital Signs Date Time Temp Pulse Resp B/P (MAP) Pulse Ox O2 Delivery O2 Flow Rate FiO2 10/31/18 10:40 98.3 92 17 106/70 (82) 98 Room Air 98.3 Physical Exam General: mild distress, Other (somnolent) Heart: Regular rate (SR per EKG. Regular 60s), Normal S1, Normal S2, No murmurs Abdomen: Normal bowel sounds, Soft Extremities: No cyanosis, No edema, Normal pulses Skin: No rashes, No significant lesion Labs LABS Laboratory Tests Test 10/30/18 16:40 Troponin I Quantitative 0.021 ng/mL (0.000-0.055) Assessment and Plan Assessmemt and Plan Problems Medical Problems: (1) Chest pain Status: Acute Comment Review of Relevant I have reviewed the following items [employer] (where applicable) has been applied. Labs Laboratory Tests Test 10/29/18 19:45 10/29/18 20:20 10/30/18 03:00 10/30/18 09:45 White Blood Count 7.8 x10^3/uL (4.0-11.0) 7.3 x10^3/uL (4.0-11.0) Red Blood Count 4.64 x10^6/uL (4.30-5.70) 4.52 x10^6/uL (4.30-5.70) Hemoglobin 15.2 g/dL (13.0-17.5) 14.6 g/dL (13.0-17.5) Hematocrit 45.3 % (39.0-53.0) 44.1 % (39.0-53.0) Mean Corpuscular Volume 98 fL (79-100) 98 fL (79-100) Mean Corpuscular Hemoglobin 33 pg (25-35) 32 pg (25-35) Mean Corpuscular Hemoglobin Concent 34 g/dL (31-37) 33 g/dL (31-37) Red Cell Distribution Width 15.3 % (11.5-14.5) 15.4 % (11.5-14.5) Platelet Count 178 x10^3/uL (140-400) 180 x10^3/uL (140-400) Neutrophils (%) (Auto) 71 % (31-73) 66 % (31-73) Lymphocytes (%) (Auto) 15 % (24-48) 21 % (24-48) Monocytes (%) (Auto) 13 % (0-9) 12 % (0-9) Eosinophils (%) (Auto) 0 % (0-3) 0 % (0-3) Basophils (%) (Auto) 0 % (0-3) 1 % (0-3) Neutrophils # (Auto) 5.5 x10^3uL (1.8-7.7) 4.8 x10^3uL (1.8-7.7) Lymphocytes # (Auto) 1.2 x10^3/uL (1.0-4.8) 1.5 x10^3/uL (1.0-4.8) Monocytes # (Auto) 1.0 x10^3/uL (0.0-1.1) 0.9 x10^3/uL (0.0-1.1) Eosinophils # (Auto) 0.0 x10^3/uL (0.0-0.7) 0.0 x10^3/uL (0.0-0.7) Basophils # (Auto) 0.0 x10^3/uL (0.0-0.2) 0.0 x10^3/uL (0.0-0.2) Sodium Level 140 mmol/L (136-145) 141 mmol/L (136-145) Potassium Level 3.3 mmol/L (3.5-5.1) 3.6 mmol/L (3.5-5.1) Chloride Level 100 mmol/L (98-107) 103 mmol/L (98-107) Carbon Dioxide Level 23 mmol/L (21-32) 22 mmol/L (21-32) Anion Gap 17 (6-14) 16 (6-14) Blood Urea Nitrogen 10 mg/dL (8-26) 8 mg/dL (8-26) Creatinine 1.2 mg/dL (0.7-1.3) 1.0 mg/dL (0.7-1.3) Estimated GFR (Cockcroft-Gault) 68.9 102.9 BUN/Creatinine Ratio 8 (6-20) 8 (6-20) Glucose Level 101 mg/dL (70-99) 128 mg/dL (70-99) Calcium Level 9.5 mg/dL (8.5-10.1) 8.8 mg/dL (8.5-10.1) Magnesium Level 1.9 mg/dL (1.8-2.4) Total Bilirubin 0.7 mg/dL (0.2-1.0) 0.8 mg/dL (0.2-1.0) Aspartate Amino Transf (AST/SGOT) 103 U/L (15-37) 86 U/L (15-37) Alanine Aminotransferase (ALT/SGPT) 52 U/L (16-63) 47 U/L (16-63) Alkaline Phosphatase 75 U/L (46-116) 72 U/L (46-116) Troponin I Quantitative 0.022 ng/mL (0.000-0.055) 0.030 ng/mL (0.000-0.055) 0.031 ng/mL (0.000-0.055) AQ-Yth-C-Type Natriuretic Peptide 44 pg/mL (0-124) Total Protein 8.0 g/dL (6.4-8.2) 7.1 g/dL (6.4-8.2) Albumin 4.2 g/dL (3.4-5.0) 3.9 g/dL (3.4-5.0) Albumin/Globulin Ratio 1.1 (1.0-1.7) 1.2 (1.0-1.7) Lipase 64 U/L (73-393) Thyroid Stimulating Hormone (TSH) 0.646 uIU/mL (0.358-3.74) Ethyl Alcohol Level < 10 mg/dL (0-10) Urine Collection Type Void Urine Color Yellow Urine Clarity Turbid Urine pH 6.0 Urine Specific [place] >=1.030 Urine Protein Negative mg/dL (NEG-TRACE) Urine Glucose (UA) Negative mg/dL (NEG) Urine Ketones (Stick) 15 mg/dL (NEG) Urine Blood Trace (NEG) Urine Nitrite Negative (NEG) Urine Bilirubin Moderate (NEG) Urine Urobilinogen Dipstick 1.0 mg/dL (0.2 mg/dL) Urine Leukocyte Esterase Negative (NEG) Urine RBC 0 /HPF (0-2) Urine WBC 1-4 /HPF (0-4) Urine Squamous Epithelial Cells Few /LPF Urine Bacteria Few /HPF (0-FEW) Urine Mucus Mod /LPF Urine Opiates Screen Neg (NEG) Urine Methadone Screen Neg (NEG) Urine Barbiturates Neg (NEG) Urine Phencyclidine Screen Neg (NEG) Urine Amphetamine/Methamphetamine Neg (NEG) Urine Benzodiazepines Screen Pos (NEG) Urine Cocaine Screen Neg (NEG) Urine Cannabinoids Screen Neg (NEG) Urine Ethyl Alcohol Neg (NEG) Ammonia 17 mcmol/L (11-34) Triglycerides Level 57 mg/dL (0-150) Cholesterol Level 154 mg/dL (0-200) LDL Cholesterol, Calculated 79 mg/dL (0-100) VLDL Cholesterol, Calculated 11 mg/dL (0-40) Non-HDL Cholesterol Calculated 90 mg/dL (0-129) HDL Cholesterol 64 mg/dL (40-60) Cholesterol/HDL Ratio 2.4 Test 10/30/18 16:40 Troponin I Quantitative 0.021 ng/mL (0.000-0.055) Laboratory Tests Test 10/30/18 16:40 Troponin I Quantitative 0.021 ng/mL (0.000-0.055) Medications Current Medications Aspirin (Lui Aspirin) 325 mg 1X ONCE PO Last administered on 10/29/18at 20:30 ; Start 10/29/18 at 20:45; Stop 10/29/18 at 20:46; Status DC Multivitamins 10 ml/Thiamine HCl 100 mg/Folic Acid 1 mg/Sodium Chloride 1,011.2 ml @ 1,000.088 mls/hr 1X ONCE IV Last administered on 10/29/18at 20:35; Start 10/29/18 at 20:45; Stop 10/29/18 at 21:45; Status DC Labetalol HCl (Normodyne Iv Push) 10 mg 1X ONCE IVP ; Start 10/29/18 at 23:30; Stop 10/29/18 at 23:31; Status DC Sodium Chloride 1,000 ml @ 1,000 mls/hr 1X ONCE IV Last administered on at 00:44; Start 10/29/18 at 23:30; Stop 10/30/18 at 00:29; Status DC Ondansetron HCl (Zofran) 4 mg PRN Q8HRS PRN IV NAUSEA/VOMITING 1ST CHOICE; Start 10/30/18 at 00:00; Stop 10/30/18 at 23:59; Status DC Morphine Sulfate (Morphine Sulfate) 2 mg PRN Q2HR PRN IV SEVERE PAIN; Start at 00:00; Stop 10/30/18 at 23:59; Status DC Acetaminophen (Tylenol) 650 mg PRN Q4HRS PRN PO FEVER; Start 10/30/18 at 00:00 ; Stop 10/30/18 at 23:59; Status DC Multivitamins 10 ml/Thiamine HCl 100 mg/Folic Acid 1 mg/Sodium Chloride 1,011.2 ml @ 100 mls/ hr DAILY IV Last administered on 10/31/18at 10:06; Start at 09:00; Stop 11/03/18 at 19:07 Lorazepam (Ativan) 4 mg PRN Q1HR PRN PO For CIWA 8-14 Last administered on 10/30at 04:42; Start 10/30/18 at 00:00 Clonidine HCl (Catapres) 0.1 mg PRN Q1HR PRN PO SBP > 180 or DBP > 100, MRX3; Start 10/30/18 at 00:00 Potassium Chloride (Klor-Con) 40 meq 1X ONCE PO Last administered on at 00:44; Start 10/30/18 at 00:30; Stop 10/30/18 at 00:31; Status DC Pantoprazole Sodium (Protonix) 40 mg DAILYAC PO ; Start 10/31/18 at 07:30 Pantoprazole Sodium (Protonix) 40 mg 1X ONCE PO ; Start 10/30/18 at 09:45; Stop 10/30/18 at 09:46; Status DC Enoxaparin Sodium (Lovenox Per Pharmacy Prophylaxis Dosing) 1 each PRN DAILY PRN MC SEE COMMENTS; Start 10/30/18 at 10:45 Enoxaparin Sodium (Lovenox 40mg Syringe) 40 mg Q24H SQ ; Start 10/30/18 at 11:00 Active Scripts Active Reported Benadryl Allergy (Diphenhydramine Hcl) 25 Mg Tablet 25 Mg PO PRN QHS PRN Vitals/I & O Vital Sign - Last 24 Hours 10/30/18 10/30/18 10/30/18 10/30/18 15:00 19:00 20:00 23:00 Temp 98.4 97.7 99.1 98.4 97.7 99.1 Pulse 101 74 96 Resp 16 19 B/P (MAP) 136/91 (106) 134/83 (100) 155/90 (111) Pulse Ox 95 96 96 O2 Delivery Room Air Room Air Room Air Room Air 10/31/18 10/31/18 10/31/18 10/31/18 03:00 07:00 08:00 10:40 Temp 98.8 98.6 98.3 98.8 98.6 98.3 Pulse 69 107 92 Resp 18 18 17 B/P (MAP) 120/72 (88) 140/85 (103) 106/70 (82) Pulse Ox 97 98 98 O2 Delivery Room Air Room Air Room Air Room Air Intake and Output 10/30/18 10/30/18 10/31/18 14:59 22:59 06:59 Intake Total 1120 ml 240 ml 0 ml Balance 1120 ml 240 ml 0 ml JON MCQUEEN MD Oct 31, 2018 11:32
[2018-10-31] MEDS: ENOXAPARIN 40 MG/0.4 ML SYRINGE. SQ SCH (12:14)
--- NOTE | 2018-10-31 12:40 | NUR ---
Pt woke up around 1200, asked pt if he wanted to take the medications he missed this morning. He stated he did. Gave him Protonix and Lovonox.
[2018-10-31 14:51] VITALS: BP 147/92
[2018-10-31 19:00] VITALS: BP 137/85
[2018-10-31 23:00] VITALS: BP 111/78
[2018-11-01 03:00] VITALS: BP 132/81
[2018-11-01 07:00] VITALS: BP 114/70
[2018-11-01] MEDS: MULTIVIT INFUSN,ADULT 4,VIT K 10 ML, THIAMINE INJ 100 MG, FOLIC ACID INJ 1 MG in IV NOR... IV SCH (09:01)
[2018-11-01 10:45] VITALS: BP 122/71
[2018-11-01] MEDS: ENOXAPARIN 40 MG/0.4 ML SYRINGE. SQ SCH (11:00)
--- NOTE | 2018-11-01 11:18 | NUR ---
Went into pt's room at 117 to give Lovonox, pt was sleeping. Pt requested that this nurse come back around 1400 to give medication as he is trying to get some sleep.
--- NOTE | 2018-11-01 13:10 | PDOC3 ---
Discharge Summary Visit Information Date of Admission: Oct 29, 2018 Date of Discharge: Nov 01, 2018 Final Diagnosis acute toxic encephalopathy, EtOH abuse disorder very lethargic after IV ativan, lethargic, I suspected K2 use or other similar, he denied, Problems Medical Problems: (1) Chest pain Status: Acute Brief Hospital Course Allergies Allergies Coded Allergies Type Severity Reaction Last Updated Verified No Known Drug Allergies 10/29/18 No Vital Signs Vital Signs Date Time Temp Pulse Resp B/P (MAP) Pulse Ox O2 Delivery O2 Flow Rate FiO2 11/01/18 10:45 98.6 58 18 122/71 (88) 97 Room Air 98.6 Lab Results Laboratory Tests Test 10/30/18 16:40 Troponin I Quantitative 0.021 ng/mL (0.000-0.055) Brief Hospital Course Mr. Pérez is a 33 old male, admit confused and lethargic, tremor consistent with EtOH withdrawl, ativan dosing made him sleep about 16 hours a day for 2 days, very lethargic, then better the third day Discharge Information Condition at Discharge: Improved Follow Up: Weeks Disposition/Orders: D/C to Home Scheduled PRN Diphenhydramine Hcl (Benadryl Allergy) 25 Mg Tablet, 25 MG PO PRN QHS PRN for INSOMNIA, DECEMBER REPEAT X1, (Reported) Entered as Reported by: LUPIS YANCEY on 10/30/18449 Last Action: New Order on 10/30/18449 by LUPIS YANCEY Discontinued Medications Info (No Known Medications Prior To Admisstion) Each, 1 EACH MC PRN PRN for SEE COMMENTS, (Reported) Entered as Reported by: LUPIS YANCEY on 10/30/18319 Last Action: Discontinued on 10/30/18449 by LUPIS YANCEY Patient Instructions Patient Instructions < 30 min face to face discussion JON MCQUEEN MD Nov 01, 2018 13:10
--- NOTE | 2018-11-01 13:32 | NUR ---
Discharge Note: DORENE NICHOLSON [facility]SON Discharge instructions and discharge home medications reviewed with Patient and a copy given. All questions have been answered and understanding verbalized. The following instructions and handouts were given: discharge packet, education on chest pain and altered mental status. Discontinued lines and drains: peripheral IV, tip intact. Patient discharged to home with self care via private vehicle. Pt left unit walking, alert, oriented, and stable.
== END 2018-11-01 13:31 | disposition home or self-care (01) | DRG 92 ==
LOC: ER 19:33 → 5 SOUTH 23:18
PROVIDERS: ADMIT Internal Medicine; ATTEND Internal Medicine
DX: G92 Toxic encephalopathy (principal); F10.221 Alcohol dependence with intoxication delirium; F10.239 Alcohol dependence with withdrawal, unspecified; R07.89 Other chest pain; I10 Essential (primary) hypertension; Z96.659 Presence of unspecified artificial knee joint
CPT/HCPCS: 36415; 71045; 80053; 80061; 80307; 81001; 82140; 83690; 83735; 83880; 84443; 84484; 85025; 93005; 96365; G0480; J1650; J7030; 99285-25